=== PATIENT | male | born 1975 | race Hispanic/Latino ===

== ENCOUNTER 2024-01-18 14:51 | Emergency (ER) | payer BC ==
[~2024-01-18] VITALS: Ht 170.2 cm; Wt 140.6 kg
[2024-01-18] MEDS: teTANUS/diphthERIA TOXOID [ADULT] 0.5 ML VIAL IM ONE (17:09)
[2024-01-18 17:38] VITALS: BP 127/70; PULSE 76; RESP 18; TEMP 98; O2SAT 99
== END 2024-01-18 17:40 | disposition home or self-care (01) ==
LOC: EDH 14:51
DX: S51.811A Laceration without foreign body of right forearm, initial encounter (principal); J45.909 Unspecified asthma, uncomplicated; W25.XXXA Contact with sharp glass, initial encounter; Y93.89 Activity, other specified; Y92.89 Other specified places as the place of occurrence of the external cause; Y99.8 Other external cause status
CPT/HCPCS: 12002; 73090; 90471; 90714